=== PATIENT | female | born 1995 | race African-American/Black ===

== ENCOUNTER 2016-04-28 17:35 | Emergency (ER) | payer OTHER ==
[2016-04-28 17:40] VITALS: BP 141/73; PULSE 72; TEMP 97.9; BMI 23.2
--- NOTE | 2016-04-28 17:42 | PDOC ---
Rapid Medical Evaluation Time Seen by Provider: 04/28/16 17:36 Medical Evaluation: 04/28/16 17:37 o I have performed a brief in-person evaluation of this patient. Connie presents with a chief complaint of severe abdominal cramping. She was put o medications but that stopped working, She was put on control but then came off 2 years ago. Has been on nothing since then. 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 04/28/16 17:38
[2016-04-28] MEDS ORDERED: KETOROLAC TROMETHAMINE 60 MG/2 ML VIAL IM ONE (18:18)
--- NOTE | 2016-04-28 18:18 | PDOC ---
History of Present Illness - General Chief Complaint: Pain Stated Complaint: NAUSEA/VOMITING Time Seen by Provider: 04/28/16 17:36 History Source: Patient, Parent(s) Exam Limitations: No Limitations - History of Present Illness Travel History: No Initial Comments: 04/28/16 18:19 Timing/Duration: reports: getting worse, changing over time, intermittent Quality: reports: aching, cramping Abdominal Pain Onset Location: reports: suprapubic Pain Radiation: reports: no radiation Past History - Past Medical History Allergies/Adverse Reactions: Allergies Allergy/AdvReac Type Severity Reaction Status Date / Time peanut Allergy Verified 04/28/16 17:40 FRUIT Allergy Uncoded 04/28/16 17:40 Home Medications: Ambulatory Orders Naproxen [Naprosyn -] 500 mg PO BID #30 tablet 04/28/16 Other medical history: PT DENIES MEDICAL HX - Psycho/Social/Smoking Cessation Hx Suicidal Ideation: No Smoking History: Never smoked Hx Alcohol Use: No Drug/Substance Use Hx: No Review of Systems - Review of Systems Able to Perform ROS?: Yes Is the patient limited French proficient: Yes Constitutional: Yes: Symptoms Reported, See HPI, Malaise. No: Fever, Loss of Appetite HEENTM: No: Symptoms Reported Respiratory: No: Symptoms reported ABD/GI: Yes: Symptoms Reported, See HPI, Nausea. No: Abdominal Distended Integumentary: No: Symptoms Reported All Other Systems: Reviewed and Negative *Physical Exam - Vital Signs Last Vital Signs Temp Pulse Resp BP Pulse Ox 97.9 F 72 18 141/73 99 04/28/16 17:37 04/28/16 17:37 04/28/16 17:37 04/28/16 17:37 04/28/16 17:37 - Physical Exam General Appearance: Yes: Nourished, Appropriately Dressed, Apparent Distress, Mild Distress HEENT: positive: AIMEE, Normal ENT Inspection, TMs Normal, Pharynx Normal Neck: positive: Tender, Supple. negative: Lymphadenopathy (R), Lymphadenopathy (L) Respiratory/Chest: positive: Lungs Clear, Normal Breath Sounds Gastrointestinal/Abdominal: positive: Normal Bowel Sounds, Flat, Soft. 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 Will treat with high-dose nonsteroidal anti- inflammatories and follow-up with [employer] *DC/Admit/Observation/Transfer Diagnosis at time of Disposition: Moderate cramps with menses - Discharge Dispostion Disposition: HOME Condition at time of disposition: Stable Admit: No - Referrals Referrals: STAFF,NOT ON [Primary Care Provider] - [facility] [Provider Group] - Patient Instructions Printed Discharge Instructions: Painful Menstrual Periods Additional Instructions: Rest, drink lots of fluids: Teas, water, soups Heather wesley, carbonated beverages for the bubbles May try peppermint teas Continue [id number] medications for symptomatic relief Naprosyn 500 mg tablet, prescription strength Naprosyn may provide relief, one tablet every 8 hours as needed Followup with private physician / [employer] for evaluation and treatment
[2016-04-28] MEDS ORDERED: KETOROLAC TROMETHAMINE 30 MG/1 ML VIAL ONE (18:20)
== END 2016-04-28 18:45 | disposition home or self-care (01) ==
LOC: JERFT 17:35
DX: R10.2 Pelvic and perineal pain (principal); N94.6 Dysmenorrhea, unspecified
CPT/HCPCS: 99281-25

== ENCOUNTER 2017-10-28 01:23 | Emergency (ER) | payer OTHER ==
[2017-10-28 02:02] VITALS: BP 121/62; PULSE 116; TEMP 98.1; BMI 21.2
--- NOTE | 2017-10-28 02:13 | PDOC ---
Attending Attestation - Resident Resident Name: Candido Burks - HPI HPI: 10/31/17 09:45 PT presents to the ED complaining of intermittent numbness without weakness to both little fingers and to both legs. States that these symptoms happen primarily when she is going to sleep. - Physicial Exam PE: 10/31/17 09:49 Agree with resident exam. PAtient is alert, in no acute distress and is neurologically intact. 5/5 strength bilateral UE and LE. - Medical Decision Making 10/31/17 09:50 Pt presents to the ED with intermittent numbness of her hands and feet. Neurologically intact. No signs or symptoms concerning for emergent neurologic conditions. Will discharge home with referral to neurology as outpatient.
--- NOTE | 2017-10-28 02:44 | PDOC ---
History of Present Illness - General Stated Complaint: BI LATERAL HAND NUMBNESS Time Seen by Provider: 10/28/17 02:12 - History of Present Illness Initial Comments: 10/28/17 02:46 The patient is a 22 year old female with no significant PMH who presents for evaluation of tingling to her bilateral 5th fingers. The patient notes a 1-2 day history of a "strange sensation" to her 5th finger and half of her 4th finger bilaterally worse on the right. She was evaluated at urgent care 1 day ago for these symptoms and was prescribed a medrol dose jada for possible nerve inflammation. She noted a strange sensation in her right foot tonight as well prompting her presentation to the ED for further evaluation. She notes that she has been experiencing similar symptoms intermittently as well over the past few months. She otherwise denies fevers, chills, vision changes, headache, chest pain, SOB, nausea, vomiting, abdominal pain, numbness, weakness, or changes with urination or bowel movements. Past History - Past Medical History Allergies/Adverse Reactions: Allergies Allergy/AdvReac Type Severity Reaction Status Date / Time peanut Allergy Verified 04/28/16 17:40 FRUIT Allergy Uncoded 04/28/16 17:40 Home Medications: Ambulatory Orders Naproxen [Naprosyn -] 500 mg PO BID #30 tablet 04/28/16 COPD: No - Suicide/Smoking/Psychosocial Hx Smoking History: Never smoked Have you smoked in the past 12 months: No Information on smoking cessation initiated: No Hx Alcohol Use: No Drug/Substance Use Hx: No Review of Systems - Review of Systems Comments:: 10/28/17 02:52 Constitutional: No fevers, chills, fatigue, malaise HEENT: No Rhinorrhea, nasal congestion, visual changes Cardiovascular: No chest pain, syncope, palpitations, lightheadedness Respiratory: No Cough, SOB, Hemoptysis, Gastrointestinal: No Abdominal pain, Nausea, Vomiting, Constipation, Diarrhea, Melena Genitourinary: No Dysuria, Frequency, Urgency, Hesitancy, Hematuria, Flank pain Musculoskeletal: No Myalgia, arthralgia Skin: No rashes, itching, bruising, pallor Neurologic: Tingling. No Headache, Dizziness, Numbness, Weakness, Psychiatric: No Hallucinations. No SI or HI *Physical Exam - Vital Signs Last Vital Signs Temp Pulse Resp BP Pulse Ox 98.1 F 116 H 18 121/62 96 10/28/17 01:56 10/28/17 01:56 10/28/17 01:56 10/28/17 01:56 10/28/17 01:56 - Physical Exam Comments: 10/28/17 02:52 General Appearance: Nourished. No Apparent Distress HEENT: EOMI, AIMEE. No Pharyngeal Erythema, Tonsillar Exudate, Tonsillar Erythema Neck: No Cervical Lymphadenopathy Respiratory/Chest: Lungs Clear, Normal Breath Sounds. No Crackles, Rales, Rhonchi, Wheezing Cardiovascular: Regular Rhythm, Regular Rate. No Murmur, Gallops, Rubs Gastrointestinal/Abdominal: Normal Bowel Sounds, Soft. No Guarding, Rebound, Tenderness Musculoskeletal: No CVA Tenderness Extremity: Normal Capillary Refill Integumentary: Normal Color, Dry, Warm Neurologic: gse mechanic II-XII NML intact, Fully Oriented, Alert, Normal Mood/Affect, Normal Response, Motor Strength 5/5, Sensation to light touch and temperature intact bilaterally. Medical Decision Making - Medical Decision Making 10/28/17 02:53 The patient is a 22 year old female with no significant PMH who presents for evaluation of tingling to her bilateral 5th fingers. The patient appears clinically well on exam and has no focal neurologic findings. The patient's tachycardia has improved to 86 and her tachycardia was likely due to anxiety. It is likely the patient's symptoms are due to a peripheral neuropathy. We are comfortable discharging the patient home with neurology follow up. We discussed the plan and return precautions with the patient who voiced understanding and is comfortable with the plan. *DC/Admit/Observation/Transfer Diagnosis at time of Disposition: Numbness - Discharge Dispostion Disposition: HOME Condition at time of disposition: Stable Decision to Admit order: No - Referrals Referrals: Edwin Gill MD [Staff Physician] - - Patient Instructions Printed Discharge Instructions: DI for Numbness/tingling Additional Instructions: Please return to the ER if you experience concerning or worsening symptoms. Please call to schedule a follow up appointment with our neurologist Dr. Gill within 1 week to discuss your ER visit and further management of your symptoms. Please continue your prescribed medication as well. - Post Discharge Activity
== END 2017-10-28 03:02 | disposition home or self-care (01) ==
LOC: JER 01:23
DX: R20.0 Anesthesia of skin (principal)
CPT/HCPCS: 99282-25